=== PATIENT | female | born 1990 | race Caucasian/White ===

== ENCOUNTER 2016-09-22 14:56 | Emergency (ER) | payer OTHER ==
--- NOTE | 2016-09-22 15:00 | PDOC ---
Rapid Medical Evaluation Time Seen by Provider: 09/22/16 14:58 Medical Evaluation: Allergies Allergy/AdvReac Type Severity Reaction Status Date / Time No Known Allergies Allergy Verified 05/15/16 18:43 09/22/16 14:58 I have performed a brief in-person evaluation of this patient. The patient presents with a chief complaint of vaginal bleeding since yesterday Pertinent physical findin months I have ordered lab and US The patient will proceed to the ED for further evaluation
[2016-09-22 15:02] VITALS: BP 136/81; PULSE 99; TEMP 98.4; BMI 23.2
[2016-09-22 15:52] LABS: BASOPHIL 0.3 % (0-2.0); EOSINOPHIL 0.4 % (0-4.5); MCH 30.5 pg (25.7-33.7); MCHC 34.1 g/dl (32.0-36.0); MEAN CELL VOLUME 89.6 fl (80-96); MEAN PLT VOLUME 8.3 fl (7.5-11.1); NEUTROPHILS 75.9 % (42.8-82.8); PLATELET COUNT 221 K/MM3 (134-434); RDW 15.7 % (11.6-15.6); WHITE BLOOD COUNT 7.8 K/mm3 (4.0-10.0)
[2016-09-22 16:14] LABS: ALBUMIN 3.3 g/dl (3.4-5.0); ANION GAP 10 (8-16); BILIRUBIN,TOTAL 0.4 mg/dL (0.2-1.0); CALCIUM 8.8 mg/dL (8.5-10.1); CO2 25 mmol/L (21-32); CREATININE 0.4 mg/dL (0.55-1.02); GLUCOSE,RANDOM 85 mg/dL (74-106); SGOT/AST 7 U/L (15-37); SGPT/ALT 23 U/L (12-78); TOT PROT 6.9 g/dl (6.4-8.2)
[2016-09-22 16:17] LABS: URINE APPEARANCE CLEAR; URINE BILIRUBIN NEGATIVE (NEGATIVE); URINE COLOR STRAW; URINE GLUCOSE (UA) NEGATIVE (NEGATIVE); URINE KETONE NEGATIVE (NEGATIVE); URINE NITRITE NEGATIVE (NEGATIVE); URINE PROTEIN NEGATIVE (NEGATIVE); URINE UROBILINOGEN NEGATIVE E.U./dl (0.2-1.0)
[2016-09-22 16:32] LABS: ALK PHOS 68 U/L (45-117)
--- NOTE | 2016-09-22 16:35 | PDOC ---
History of Present Illness - General Chief Complaint: Vaginal Bleeding Stated Complaint: VAGINAL BLEEDING, 16 WKS Time Seen by Provider: 09/22/16 14:58 History Source: Patient Exam Limitations: No Limitations - History of Present Illness Travel History: No Initial Comments: 09/22/16 15:15 26-year-old female currently 16 weeks presents with vaginal bleeding since this morning associated with low back pain and mid suprapubic cramping. Patient states had an ultrasound done on Monday which showed no significant findings. Patient denies vaginal discharge prior to, urinary complaints, change in bowel pattern, fever, chills, dyspareunia. Patient seen by Dr. Samantha Garner at the clinic Timing/Duration: reports: constant Quality: reports: mild, cramping Abdominal Pain Onset Location: reports: suprapubic (mid) Pain Radiation: reports: back Aggravating Factors: improves with: None Alleviating Factors: improves with: None Past History - Past Medical History Allergies/Adverse Reactions: Allergies Allergy/AdvReac Type Severity Reaction Status Date / Time No Known Allergies Allergy Verified 09/22/16 15:02 Home Medications: Ambulatory Orders NK [No Known Home Medication] 09/22/16 Asthma: No Cancer: No Cardiac Disorders: No Diabetes: No HTN: No Seizures: No Thyroid Disease: No - Reproductive History Is Patient Now?: Yes (#): 3 Para: 2 - Psycho/Social/Smoking Cessation Hx Anxiety: No Suicidal Ideation: No Smoking History: Never smoked Have you smoked in the past 12 months: No Information on smoking cessation initiated: No Hx Alcohol Use: No Drug/Substance Use Hx: No Substance Use Type: None Hx Substance Use Treatment: No Patient Lives Alone: No Lives with/in: spouse/SO Review of Systems - Review of Systems Able to Perform ROS?: Yes Constitutional: No: Symptoms Reported HEENTM: No: Symptoms Reported Respiratory: No: Symptoms reported Cardiac (ROS): No: Symptoms Reported ABD/GI: Yes: Abdominal cramping : Yes: Discharge (vaginal bleed) Musculoskeletal: Yes: Back Pain Integumentary: No: Symptoms Reported Neurological: No: Symptoms reported Endocrine: No: Symptoms Reported Hematologic/Lymphatic: No: Symptoms Reported *Physical Exam - Vital Signs Last Vital Signs Temp Pulse Resp BP Pulse Ox 98.4 F 99 H 18 136/81 100 09/22/16 15:00 09/22/16 15:00 09/22/16 15:00 09/22/16 15:00 09/22/16 15:00 - Physical Exam General Appearance: Yes: Nourished, Appropriately Dressed. No: Apparent Distress HEENT: negative: Pale Conjunctivae Respiratory/Chest: positive: Lungs Clear, Normal Breath Sounds. negative: Respiratory Distress, Accessory Muscle Use Cardiovascular: positive: Regular Rhythm, Regular Rate. negative: Murmur Female Pelvic Exam: positive: cervical os closed, vaginal bleeding (brownish pink. no clots). negative: CMT, adnexal tenderness Gastrointestinal/Abdominal: positive: Soft, Tenderness (mid suprapubic) Musculoskeletal: negative: CVA Tenderness, Vertebral Tenderness Extremity: positive: Normal Capillary Refill. negative: Pedal Edema Integumentary: positive: Normal Color, Warm, Moist Neurologic: positive: Motor Strength 11/25 ED Treatment Course - LABORATORY CBC & Chemistry Diagram: 09/22/16 15:36 09/22/16 15:45 - ADDITIONAL ORDERS Additional order review: Laboratory Results 09/22/16 15:45 Sodium Cancelled Potassium Cancelled Chloride Cancelled Carbon Dioxide Cancelled Anion Gap Cancelled BUN Cancelled Creatinine Cancelled Creat Clearance w eGFR Cancelled Random Glucose Cancelled Calcium Cancelled Total Bilirubin Cancelled AST Cancelled ALT Cancelled Alkaline Phosphatase Cancelled Total Protein Cancelled Albumin Cancelled 09/22/16 15:36 RBC 4.28 MCV 89.6 MCHC 34.1 RDW 15.7 H D MPV 8.3 Neutrophils % 75.9 Lymphocytes % 18.1 Monocytes % 5.3 Eosinophils % 0.4 Basophils % 0.3 Medical Decision Making - Medical Decision Making 09/22/16 15:17 Patient vaginal bleeding at 16 weeks of . Patient has scant brown blood in the vault and mild mid suprapubic tenderness. Patient ordered for labs , urine and ultrasound. 09/22/16 17:19 Patient's ultrasound shows a single viable intrauterine gestation measuring 19 weeks and 5 days. Closed cervix measuring 4 cm in length. Amniotic fluid appears within normal limits. heart rate measuring 1 52 bpm. 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 Laboratory Tests 09/22/16 09/22/16 09/22/16 15:15 15:36 15:36 WBC 7.8 Hgb 13.0 Hct 38.3 Neutrophils % 75.9 Sodium 138 Potassium 3.7 Chloride 103 Carbon Dioxide 25 Anion Gap 10 BUN 7 D Creatinine 0.4 L D Random Glucose 85 Calcium 8.8 Total Bilirubin 0.4 D AST 7 L D ALT 23 D Beta HCG, Quant 54546.7 Urine Ketones Urine Blood Urine Nitrite Urine Urobilinogen Ur Leukocyte Esterase Blood Type O POSITIVE 09/22/16 15:45 WBC Hgb Hct Neutrophils % Sodium Potassium Chloride Carbon Dioxide Anion Gap BUN Creatinine Random Glucose Calcium Total Bilirubin AST ALT Beta HCG, Quant Urine Ketones Negative Urine Blood 1+ H Urine Nitrite Negative Urine Urobilinogen Negative Ur Leukocyte Esterase Trace H Blood Type *DC/Admit/Observation/Transfer Diagnosis at time of Disposition: Threatened in second trimester - Discharge Dispostion Disposition: HOME Condition at time of disposition: Good - Referrals Referrals: Laurie Garner MD [Primary Care Provider] - - Patient Instructions Printed Discharge Instructions: DI for Vaginal Bleeding During Additional Instructions: May take Tylenol for discomfort. Please follow up with her MOLD CUTTING MACHINE OPERATOR and discussed today's visit. If symptoms worsen may return to the ED.
[2016-09-22 16:40] LABS: URINE BLOOD 1+ (NEGATIVE); URINE LEUK ESTERASE TRACE (NEGATIVE)
[2016-09-22 17:14] LABS: URINE BACTERIA RARE /hpf (NONE SEEN); URINE MUCUS RARE; URINE RBC <1 /hpf (0-3)
== END 2016-09-22 17:42 | disposition home or self-care (01) ==
LOC: JER 14:56
DX: O20.0 Threatened abortion (principal); Z3A.19 19 weeks gestation of pregnancy
CPT/HCPCS: 36415; 76817-TC; 80053; 81003; 81015; 84702; 85025; 86850; 86900; 86901; 87086; 99283-25

== ENCOUNTER 2017-02-01 07:50 | Inpatient (IN) | payer OTHER ==
[2017-02-01] MEDS ORDERED: BUTORPHANOL TARTRATE 1 MG/ML VIAL IVPB PRN (08:40)
[2017-02-01] MEDS ORDERED: PROMETHAZINE HCL 25 MG/1 ML VIAL IVPUSH PRN (08:40)
[2017-02-01] MEDS ORDERED: DEXTROSE 5%-LACTATED RINGERS 1,000 ML IV SCH (08:45)
--- NOTE | 2017-02-01 08:54 | HP ---
Past Medical History - Primary Care Physician PCP:: Rain Bermeo - Admission Chief Complaint: 26 yrs 39.3/7 weeks iup onset LP since 2. 00AM . pt was evaluated on 01/31/17 evening , sent home as false labor pain . US on 01/31 , BPP 8/, 38.3 weeks, CARY 9.8cm, Efw 3661gm, Vx, ant palcenta History of Present Illness: PNC at [address] [place] [address] work Up O Pos, Rubella immune, Hbsag neg, Rpr nr, ,Hiv neg , gc/ct neg , quantiferon neg, 1hr Gtt69, GBS neg 08/23/16 >100,000, G roup B pos bact growth h/o bleeing in 1st trimester NT screen not done, Quad screen neg MFM growth sono reviewed , History Source: Patient Limitations to Obtaining History: No Limitations - Past Medical History RECREATIONAL COUNSELOR: No: Dementia, Migraine, Seizure Cardiovascular: No: HTN, Murmur Pulmonary: No: Asthma Gastrointestinal: Yes: Gastritis ...: 3 ...Para: 2 (07/25/12 6', & 03/15/14 6'4") ...LMP: 04/08/16 (mistaken dates ) ...EDC by Sono: 02/05/17 (39.3/7 weeks ) Heme/Onc: Yes: Anemia Infectious Disease: Yes: STD's (in past , does not know which one). No: AIDS, HIV, Tuberculosis Psych: No: Addictions, Anxiety, Bipolar, Depression Endocrine: No: Diabetes Mellitus - Past Surgical History Past Surgical History: Yes: None Hx Myomectomy: No Hx Transabdominal Cerclage: No - Smoking History Smoking history: Never smoked Have you smoked in the past 12 months: No - Alcohol/Substance Use Hx Alcohol Use: No History of Substance Use: reports: None - Social History History of Recent Travel: No Home Medications - Allergies Allergies/Adverse Reactions: Allergies Allergy/AdvReac Type Severity Reaction Status Date / Time No Known Allergies Allergy Verified 02/01/17 08:04 - Home Medications Home Medications: Ambulatory Orders Vitamins (Sjr) - 1 tab PO DAILY 12/10/16 Physical Exam - Maternity Vital Signs: Vital Signs Temperature 98.3 F 02/01/17 08:07 Pulse Rate 95 H 02/01/17 08:07 Respiratory Rate 20 02/01/17 08:07 Blood Pressure 116/80 02/01/17 08:07 O2 Sat by Pulse Oximetry (%) Constitutional: Yes: Well Nourished, Moderate Distress Eyes: Yes: WNL HENT: Yes: WNL, Normocephalic Neck: Yes: WNL Cardiovascular: Yes: WNL, Regular Rate and Rhythm, Varicosities Breast(s): Yes: WNL - Abdominal Exam/OB Fundal Height: 38 Number of Fetuses: Single Presentation: Vertex Contractions: Yes Regularity: Irregular (5-7) Intensity: Mod/Strong Monitor Mode: External Heart Rate (range): 140 Heart Rate Location: [facility] Category: I Accelerations: Uniform - Vaginal Exam/OB Vaginal Bleediing: No Dilatation (cm): 6 Effacement (%): 90 Amniotic Membrane Status: Intact Presentation: Vertex/Position Station: -1 - Physical Exam Musculoskeletal: Yes: WNL Extremities: Yes: WNL. No: Calf Tenderness Edema: Yes Edema: LLE: Trace, RLE: Trace ...Motor Strength: WNL Psychiatric: Yes: WNL - Labs Lab Results: Laboratory Tests 02/01/17 02/01/17 02/01/17 09:35 09:35 09:35 WBC 10.0 Hgb 12.4 Hct 36.8 Plt Count 179 INR 0.94 PTT (Actin FS) Sodium 140 Potassium 3.8 Chloride 108 H Carbon Dioxide 19 L D BUN 8 Creatinine 0.4 L Random Glucose 86 RPR Titer 02/01/17 02/01/17 09:35 09:35 WBC Hgb Hct Plt Count INR PTT (Actin FS) 25.9 L Sodium Potassium Chloride Carbon Dioxide BUN Creatinine Random Glucose RPR Titer Nonreactive Problem List - Problems (1) with 39 completed weeks gestation Code(s): Z3A.39 - 39 WEEKS GESTATION OF (2) Labor established Code(s): JEI2199 - (3) GBS (group B streptococcus) UTI complicating Code(s): O23.40 - UNSP INFECTION OF URINARY TRACT IN , UNSP TRIMESTER B95.1 - STREPTOCOCCUS, GROUP B, [facility] Assessment/Plan 26 yrs , 39.3/7 weeks in labor , ,urine Gbs pos , plan iv Ampicillin prophylaxis vag del anticipated
[2017-02-01 08:58] VITALS: BMI 27.1
[2017-02-01] MEDS ORDERED: AMPICILLIN - 100 ML IVPB ONE (09:07)
[2017-02-01 09:50] LABS: BASOPHIL 0.8 % (0-2.0); EOSINOPHIL 0.1 % (0-4.5); MCH 29.4 pg (25.7-33.7); MCHC 33.9 g/dl (32.0-36.0); MEAN CELL VOLUME 86.7 fl (80-96); NEUTROPHILS 80.4 % (42.8-82.8); PLATELET COUNT 179 K/MM3 (134-434); RDW 16.1 % (11.6-15.6)
[2017-02-01 10:16] LABS: ANION GAP 13 (8-16); CALCIUM 8.3 mg/dL (8.5-10.1); CO2 19 mmol/L (21-32); CREATININE 0.4 mg/dL (0.55-1.02); GLUCOSE,RANDOM 86 mg/dL (74-106)
[2017-02-01 10:36] LABS: INR 0.94 (0.82-1.09); PROTHROMBIN TIME (PATIENT) 10.3 SEC (9.98-11.88)
--- NOTE | 2017-02-01 12:40 | PN ---
Progress Note, Labor Vaginal Exam #1 Labor Exam Date: 02/01/17 Labor Exam Time: 11:00 Heart Rate (range): 140-150 Dilatation: 7 Effacement (%): 100 Amniotic Membrane Status: Intact Presentation: Vertex/Position Station: 0 Remarks: fhr cat-1 uc q 6-8 min Vaginal Exam #2 Labor Exam Date: 02/01/17 Labor Exam Time: 12:30 Heart Rate (range): 140-150 Dilatation: 7 Effacement (%): 100 Amniotic Membrane Status: Ruptured (AROM clear) Presentation: Vertex/Position Station: 0 Remarks: fhr cat-1 uc q7-8 min plan Pitocin augmentation Selected Entries 02/01/17 12:00 Temperature 98.3 F Pulse Rate 87 Blood Pressure 115/72 Vaginal Exam #3 Labor Exam Date: 02/01/17 Labor Exam Time: 14:00 Heart Rate (range): 140 Dilatation: 9 Effacement (%): 100 Amniotic Membrane Status: Ruptured Presentation: Vertex/Position Station: +1 (+1/+2) Remarks: fhr cat-1 uc 3-4 min Selected Entries 02/01/17 13:00 Temperature 98.3 F Pulse Rate 84 Blood Pressure 114/74 Vaginal Exam #4 Labor Exam Date: 02/01/17 Labor Exam Time: 14:30 Heart Rate (range): 140 Dilatation: 10 Amniotic Membrane Status: Ruptured Station: +2 Remarks: fhr cat-1 uc 2-3 min pt wants to push
[2017-02-01] MEDS ORDERED: OXYTOCIN 15 UNITS/ LR 250 ML 250 ML IVPB SCH (12:45)
[2017-02-01] MEDS ORDERED: AMPICILLIN - 100 ML IVPB SCH (13:07)
[2017-02-01] MEDS: D5W-LR W/ 20 UNITS OXYTOCIN 1,000 ML IV SCH ×2 (14:40→18:27)
[2017-02-01] MEDS: ACETAMINOPHEN 325 MG TABLET (FP) PO PRN (14:50)
[2017-02-01] MEDS: IBUPROFEN 600 MG TABLET (FP) PO PRN (14:50)
[2017-02-01] MEDS ORDERED: METHYLERGONOVINE MALEATE 0.2 MG/1 ML AMP IM PRN (15:05)
[2017-02-01] MEDS ORDERED: oxyCODONE HCL 5 MG TABLET PO PRN (15:05)
[2017-02-01] MEDS ORDERED: BISACODYL 10 MG SUPP.RECT RC PRN (15:05)
[2017-02-01] MEDS ORDERED: WITCH HAZEL 50% (TUCKS) 40 PAD/JAR PAD TP PRN (15:05)
[2017-02-01] MEDS ORDERED: BENZOCAINE 20% 57 GM BOTTLE TP PRN (15:05)
[2017-02-01] MEDS ORDERED: BENZOCAINE 28 GM HEMORRHOIDAL OINTMENT TP PRN (15:05)
--- NOTE | 2017-02-01 15:05 | PN ---
Delivery - Delivery Vaginal Delivery: No Problems, Spontaneous Episiotomy/Laceration: None EBL (cc): 400 (bladder catheterized emptied 500 ml urine, ut atonic , rx Im Methergine 0.2 mg given ) Delivery, Single - Stages of Labor Date 1st Stage Initiatied: 02/01/17 Time 1st Stage Initiated: 02:00 Date 2nd Stage Initiated: 02/01/17 Time 2nd Stage Initiated: 14:30 Date of Delivery: 02/01/17 Time of Delivery: 14:35 Date Placenta Delivered: 02/01/17 Time Placenta Delivered: 14:38 Placenta: Yes: Spontaneous, Uterine Exploration - Condition of Infant Deputy [place] Marshal/Bilingual Case Manager Present: No Gender: Female Weight: 6 lb 3 oz Position: Left, OA Total Hours ROM (Hrs/Mins): 2 hrs 8 min - 1 Minute Total Score: 9 5 Minutes Total Score: 9 - Feeding Plan Initial Plan: Exclusive throughout hospitalization Remarks - Remarks Remarks: 26 yrs , 39.2 weeks in labor urine GBS pos on 1st visit Rx IV Ampicillin prophylaxis x2 doses received no pain meds taken pitocin augmentation given Intrapartum course uneventful
[2017-02-01] MEDS: FERROUS SO4 325 MG TABLET (FP) PO SCH (17:40)
[2017-02-01] MEDS ORDERED: DIPHTH,PERTUSS(ACELL),TET 0.5 ML DISP.SYRIN IM ONE (21:15)
[2017-02-02] MEDS: IBUPROFEN 600 MG TABLET (FP) PO PRN (02:12)
[2017-02-02] MEDS: ACETAMINOPHEN 325 MG TABLET (FP) PO PRN (02:12)
[2017-02-02] MEDS: D5W-LR W/ 20 UNITS OXYTOCIN 1,000 ML IV SCH ×2 (02:22→19:26)
[2017-02-02 08:13] LABS: BASOPHIL 0.3 % (0-2.0); EOSINOPHIL 0.5 % (0-4.5); MCH 29.2 pg (25.7-33.7); MCHC 33.4 g/dl (32.0-36.0); MEAN CELL VOLUME 87.6 fl (80-96); MEAN PLT VOLUME 8.4 fl (7.5-11.1); NEUTROPHILS 78.8 % (42.8-82.8); PLATELET COUNT 143 K/MM3 (134-434); RDW 16.8 % (11.6-15.6); WHITE BLOOD COUNT 10.6 K/mm3 (4.0-10.0)
[2017-02-02] MEDS: FERROUS SO4 325 MG TABLET (FP) PO SCH ×2 (09:07→17:05)
[2017-02-02] MEDS: PRENATAL VITAMINS W/ FOLIC ACID TABLET (FP) PO SCH (09:07)
[2017-02-02] MEDS ORDERED: DIPHTH,PERTUSS(ACELL),TET 0.5 ML DISP.SYRIN IM ONE (10:00)
--- NOTE | 2017-02-02 10:53 | DS ---
Physical Exam-PAGE DESIGNER Vital Signs: Vital Signs Temperature 98.2 F 02/02/17 10:00 Pulse Rate 75 02/02/17 10:00 Respiratory Rate 18 02/02/17 10:00 Blood Pressure 100/58 02/02/17 10:00 O2 Sat by Pulse Oximetry (%) 100 02/01/17 15:30 Constitutional: Yes: Well Nourished, No Distress Eyes: Yes: WNL HENT: Yes: WNL, Normocephalic Neck: Yes: WNL Cardiovascular: Yes: WNL Respiratory: Yes: WNL Gastrointestinal: Yes: WNL ...Rectal Exam: Yes: WNL Renal/: Yes: WNL ....Post : Yes: Uterus firm, Uterus non-tender, Moderate lochia rubra ( perineum intact) Breast(s): Yes: WNL (not engorged) Musculoskeletal: Yes: WNL Extremities: Yes: WNL. No: Calf Tenderness Edema: Yes Edema: LLE: 1+, RLE: 1+ Neurological: Yes: WNL ...Motor Strength: WNL Psychiatric: Yes: WNL, Alert, Oriented Labs: CBC, BMP 02/02/17 07:25 02/01/17 09:35 Delivery - Delivery Vaginal Delivery: No Problems, Spontaneous Type of Anesthesia: None Episiotomy/Laceration: None EBL (cc): 400 (bladder catheterized emptied 500 ml urine, ut atonic , rx Im Methergine 0.2 mg given ) Delivery, Single - Stages of Labor Date 1st Stage Initiatied: 02/01/17 Time 1st Stage Initiated: 02:00 Date 2nd Stage Initiated: 02/01/17 Time 2nd Stage Initiated: 14:30 Date of Delivery: 02/01/17 Time of Delivery: 14:35 Time Placenta Delivered: 14:38 Placenta: Yes: Spontaneous, Uterine Exploration - Condition of Infant 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 discharge on 02/03/17 Discharge Summary Reason For Visit: LABOR Current Active Problems GBS (group B streptococcus) UTI complicating (Acute) Labor established (Acute) Normal spontaneous vaginal delivery (Acute) with 39 completed weeks gestation (Acute) Condition: Stable - Instructions Diet, Activity, Other Instructions: Post Instructions DIET: Continue good diet high in protein, calcium, and iron rich foods. Drink at least eight (8) glasses of water daily in addition to other fluids. ct Regular diet MEDICATIONS: Continue vitamins and iron as previously directed. Motrin and Tylenol may be taken for minor discomfort. ACTIVITY: Mild to moderate exercise may be started in two (2) weeks. Take frequent rest periods. Resume normal activity after six (6) week check up. WOUND CARE OF OPERATIVE SITE: Continue use of perineal bottle until vaginal discharge stops. Keep area clean. Shower daily. Keep abdominal wound dry. Report any drainage or redness to physician. Tub baths, tampons and douches are not permitted for [address] Breast feeding & or Bottle feeding BREAST CARE: (For those that are not ): If engorgement occurs: Wear tight fitting bra. Take Tylenol or Motrin for pain. Apply cold packs (ice in bags to each breast ) FAMILY PLANNING: There are many control alternatives to pursue and they should be discussed at your first office visit. You may resume sexual activity after your six (6) week check up. (Remember, is not a contraceptive) NEXT PHYSICIAN APPOINTMENT: Be certain to call for a six (6) week appointment, unless otherwise directed. Call Clinic or got to Emergency Dept if you have any of the following: Heavy vaginal bleeding Painful urination Leg pain Unusual odor noted to vaginal bleeding High fever Red streaking noted on breast Referrals: Rain Bermeo MD [Staff Physician] - Disposition: HOME - Home Medications Comprehensive Discharge Medication List: Ambulatory Orders Vitamins (Sjr) - 1 tab PO DAILY 12/10/16 Acetaminophen [Tylenol .Regular Strength -] 650 mg PO Q3H PRN #0 tablet Ferrous Sulfate [Feosol] 325 mg PO BIDWM #60 tab 02/02/17 Ibuprofen [Motrin -] 200 mg PO Q4H PRN #0 tablet 02/02/17 Vitamins (Sjr) - 1 tab PO DAILY tablet 02/02/17
[2017-02-02] MEDS ORDERED: SENNOSIDES/DOCUSATE COMBO (SENNA PLUS) TABLET (UD) PO PRN (22:00)
--- NOTE | 2017-02-03 07:51 | PN ---
Progress Note (short form) - Note Progress Note: ppd 2 doing wel, no c/o no excess vaginal bleeding CBC, BMP 02/02/17 07:25 02/01/17 09:35 abdomen soft, uterus firm, non tender lochiia mild no calf tenderness plan d/c home, rtc 4 weeks
[2017-02-03] MEDS: PRENATAL VITAMINS W/ FOLIC ACID TABLET (FP) PO SCH (09:06)
[2017-02-03] MEDS: FERROUS SO4 325 MG TABLET (FP) PO SCH (09:06)
[2017-02-03 12:12] VITALS: BP 100/67; PULSE 78; TEMP 98.1
== END 2017-02-03 13:05 | disposition home or self-care (01) | DRG 560 ==
LOC: JDEL 07:50 → JLDR 08:30 → J3W 15:40 → JLDR 15:47 → J3W 16:58
PROVIDERS: ADMIT Obstetrics & Gynecology; ATTEND Obstetrics & Gynecology
PROC: 10E0XZZ Delivery of Products of Conception, External Approach (ICD-10-PCS; principal; 2017-02-01)
DX: O23.43 Unspecified infection of urinary tract in pregnancy, third trimester (principal); Z3A.39 39 weeks gestation of pregnancy; Z22.330 Carrier of Group B streptococcus; Z37.0 Single live birth
CPT/HCPCS: 36415; 59409; 80048; 85025; 85610; 85730; 86593; 86850; 86900; 86901; 90715